=== PATIENT | male | born 1965 | race Caucasian/White ===

== ENCOUNTER → 2016-06-27 | Outpatient (CLI) | payer OTHER ==
--- NOTE | ~2016-06-27 | S ---
[facility] [place] [address] [place] [address] SURGICAL PATH RPT PROCEDURE Name: ZOYA GUTIERRES Room #: [facility].#: [id number] Admission: 06/27/16 Date of : 61 Discharge: Report #: [id number] Path Case #: [id number] PATHOLOGY REPORT COLLECTION DATE: 06/27/2016 RECEIVED DATE: 06/27/2016 SUBMITTING PHYS: Dr. Scar Craig OTHER PHYS: Dr. Judy Ibarra SPECIMEN(S) RECEIVED: A.Neck * * * * * * * * * * * * FINAL DIAGNOSIS: Thyroid, left thyroid nodule, needle core biopsy: - FOLLICULAR LESION WITH PREDOMINANTLY MICROFOLLICLES (RARE MACROFOLLICLES) WELL HURTHLE CELLS AND RARE PSEUDOINCLUSIONS. (PLEASE SEE COMMENT) COMMENT: Examination shows a lesion of mixed cellularity with approximately 10% macrofollicles, predominantly microfollicles, foci of Hurthle cell metaplasia as well as others with pseudoinclusions. A definite capsule or fibrosis is not identified. The differential diagnosis includes a mixed macro-microfollicular adenoma, Hurthle cell adenoma, as well as a partially sampled neoplasm suggest follicular variant of papillary carcinoma. The nature of the specimen precludes evaluation for follicular carcinoma. The concurrent cytology ([id number]) showed a follicular lesion of undetermined significance. Please see separate report for details. Co-review: Dr. Arnoldo Arias. Please note sample represents a minute portion of a large lesion and may not be healthcare representative. Correlate clinically and follow up as indicated. (IUV:csd; d/t: 06/28/2016) PATHOLOGIST: Xochilt Deluna M.D. REPORT ELECTRONICALLY SIGNED BY: Xochilt Deluna M.D. DATE/TIME: 06/28/2016 16:47 * * * * * * * * * * * * GROSS PATHOLOGY: Received in formalin labeled "Zoya Gutierres" and additionally labeled "neck, thyroid nodule left" on the requisition are 2 distinct needle cores of mcdaniel soft tissue measuring 0.6 and 1.5 cm in length, which are submitted entirely in cassette A1. [address] [place] [address] SURGICAL PATH RPT PROCEDURE Name: ZOYA GUTIERRES Room #: [facility].#: [id number] Admission: 06/27/16 Date of : 61 Discharge: Report #: [id number] Path Case #: [id number] (TTL; 06/27/2016) CLINICAL HISTORY: Thyroid nodule, left INITIAL CPT CODE(S): A; 97765 Professional services performed by [facility] at [facility] [address] [place] [address] Technical services performed by [facility] at [address] [place] [address], [place] [address]. [facility] [address] [address] PHONE: [phone] DIRECTOR: Blake W. Hernando, M.D. * * * END OF REPORT * * *
--- NOTE | ~2016-06-27 | CNG ---
[facility] [place] [address] CYTO-NONGYN REPORT PROCEDURE Name: ZOYA MOYA Room #: [facility].#: [id number] Admission: 06/27/16 Date of : 61 Discharge: Report #: [id number] Path Case #: [id number] CYTOPATHOLOGY REPORT COLLECTION DATE: 06/27/2016 RECEIVED DATE: 06/27/2016 SUBMITTING PHYS: Dr. Scar Craig OTHER PHYS: Dr. Judy Ibarra CLINICAL HISTORY: Thyroid nodule See also [id number] SPECIMEN(S) RECEIVED: A.Fine needle aspiration, thyroid nodule left * * * * * * * * * * * * FINAL DIAGNOSIS: Thyroid, left thyroid nodule, fine needle aspiration: BETHESDA CATEGORY III. FOLLICULAR LESION OF UNDETERMINED SIGNIFICANCE. SPECIMEN CONSISTS OF ABUNDANT FOLLICULAR CELLS WITH SCANT COLLOID. THE DIFFERENTIAL DIAGNOSIS INCLUDES CELLULAR ADENOMATOID NODULE AND FOLLICULAR NEOPLASM. COMMENT: Examination shows sparsely cellular aspirate smears with scattered macro- and microfollicles. There is watery colloid along with several foci of dense colloid. Papillary groups, nuclear grooves, or nuclear membrane irregularities as well as pseudoinclusions are not identified. The concurrent biopsy [id number] showed a markedly cellular tightly packed mixed macro-microfollicular lesion along with Hurthle cells and a few pseudoinclusions (see separate report). This may be due to sampling bias. Please note sample represents a minute portion of a larger lesion and may not be customer service representative. Correlate clinically and follow up as indicated. Co-review: Dr. Arnoldo Arias. (IUV:csd; d/t: 06/28/2016) PATHOLOGIST: Xochilt Deluna M.D. REPORT ELECTRONICALLY SIGNED BY: Xochilt Deluna M.D. DATE/TIME: 06/28/2016 16:09 * * * * * * * * * * * * GROSS PATHOLOGY: A. Fine needle aspiration, thyroid nodule left: The specimen is labeled "Bhavik Zoya C" and consists of 3 fixed slides, 3 air dried slides, and 20 mL of red material in cytolyt from the needle rinse is [facility] [address] [place] [address] CYTO-NONGYN REPORT PROCEDURE Name: ZOYA MOYA Room #: [facility].#: [id number] Admission: 06/27/16 Date of : 61 Discharge: Report #: [id number] Path Case #: [id number] also submitted and one ThinPrep slide and cell block were prepared from this material. RNA Retain vial received. ([facility] 06.27.2016) ROVING MARKER(S): NICOLE Sandy(ASCP) INITIAL CPT CODE(S): A; 38635, 46448 Professional services performed by [facility] at [facility] [address] [facility] , [place] [address] Technical services performed by [facility] at [address] [place] [address]., [address], [place] [address]. [facility] [address] [place], [place] [address], [address] [place] [address] PHONE: [phone] DIRECTOR: Blake Villagomez M.D. * * * END OF REPORT * * *
== END ==
LOC: EDBD → ULTRA 07:22
DX: E04.1 Nontoxic single thyroid nodule (principal)

== ENCOUNTER 2016-07-18 05:32 | Day surgery (SDC) | payer OTHER ==
[~2016-07-18] VITALS: Ht 182.9 cm; Wt 119.0 kg
[2016-07-18] VITALS (7 sets, daily range): BP systolic 134–185; BP diastolic 76–95
--- NOTE | ~2016-07-18 | O ---
[facility] [place] [address] OPERATIVE REPORT Name: ZOYA MOYA Room #: 150-5 [facility]#: [id number] Admission: 07/18/16 Attend Phys: Scar Craig MD Discharge: Date of : 61 Report #: [id number] THIS REPORT FOR: //name// CC: Scar Ibarra MD DATE OF SERVICE: 07/18/2016 SURGEON: Scar Craig MD. PREOPERATIVE DIAGNOSES: 1. A 3.8 cm follicular mass, thyroid. 2. Multinodular goiter POSTOPERATIVE DIAGNOSES: 1. A 3.8 cm follicular mass, thyroid. 2. Multinodular goiter OPERATION PERFORMED: 1. Total thyroidectomy. 2. Nerve integrity monitoring x 2 hours. INDICATIONS: The patient is a 50-year-old gentleman presenting with a large mass in his left lobe of thyroid measuring 3.8 cm. Fine needle aspiration was consistent with a cellular follicular lesion. Recommendations were made for definitive biopsy. The patient has background of a multinodular gland and we discussed total thyroidectomy for treatment. The patient is biochemically euthyroid. DESCRIPTION OF PROCEDURE: The patient was brought to the operating room and placed supine on the operating table. After adequate general anesthesia was achieved via endotracheal intubation with a Xomed nerve integrity monitoring endotracheal tube, the neck was extended. Planned incision was marked out in a relaxed skin tension line and injected with 1% Xylocaine with 1:100,000 epinephrine. The patient was then prepped and draped in a sterile fashion. As a separate part of the procedure, the electrodes from the endotracheal tube were connected to the nerve monitor. Ground electrodes were placed in the soft tissue overlying the sternum and contralateral shoulder. Electrode resistance and impedance was measured and found to be acceptable. Threshold and stimulus intensity parameters were set and the patient was monitored for the entirety of the case for approximately 2 hours in order to locate and protect the recurrent laryngeal nerve. The patient was prepped and draped. [address] [address] OPERATIVE REPORT Name: ZOYA MOYA Room #: 150-5 [facility].#: [id number] Admission: 07/18/16 Attend Phys: Scar Craig MD Discharge: Date of : 61 Report #: [id number] The procedure began with an incision through skin and subcutaneous tissue and platysma. Subplatysmal flaps were elevated superiorly and inferiorly. Dissection was made down to the strap muscles. These were divided vertically in the midline and retracted laterally. Procedure began on the patient's left side, the side of the large tumor. The thyroid gland was dissected superiorly. The vessels were identified, clamped between Ligaclips and divided. Middle thyroid vein was taken down between Ligaclips and divided and the inferior vessels were sequentially identified, clamped between Ligaclips and divided. Isthmus was dissected off the trachea and taken down with harmonic forceps. The tumor was then rolled up on to the trachea. Dissection in the tracheoesophageal groove revealed the recurrent nerve. This was tracked superiorly to the cricothyroid joint confirmed with probe stimuli. Keeping this in direct vision, Guillory's ligament was taken down sharply. The superior parathyroid was attached to the gland. This was dissected on its blood supply and preserved. The inferior parathyroid was running with the inferior thyroid artery also identified and preserved. 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 Final diagnosis was deferred to permanent section. While awaiting, the right lobe was then dissected. Again beginning superiorly, the superior vessels were sequentially identified, clamped between Ligaclips and divided. Middle thyroid vein was taken down between Ligaclips. The inferior vessels were sequentially identified, clamped between Ligaclips and divided. Dissection was made in the tracheoesophageal groove again finding the nerve and tracking it superiorly to the cricothyroid joint. Again, on this side, the superior parathyroid was attached to the capsule, dissected free and its blood supply preserved. The inferior parathyroid as well was running with the inferior thyroid artery also identified and preserved. Guillory's ligament was then taken down sharply keeping the nerve in direct vision. This lobe was delivered off the field in formalin as permanent section. Hemostasis was then assured with bipolar cautery and clip ligature. The wound was then irrigated. Powdered Kendell was placed opposite each cricothyroid joint, though 10-Hebrew Bucky drain was placed through a separate stab incision, curled into the wound and connected to bulb suction. The strap muscles were closed vertically in the midline there and then, the platysmal layer closed with interrupted 3-0 Vicryl, 4-0 Vicryl deep dermal sutures were placed and a 5-0 running subcuticular Prolene on skin. The drain was sutured in place with 2-0 silk and connected to bulb suction. The wound was dressed with Mastisol and a quarter inch Steri-Strips followed by an Op-Site. The patient was then returned to anesthesia, awake without difficulty, returned to recovery in good condition. Sponge and needle counts were correct. There were no complications and the blood loss was about 30 mL. He will be watched overnight for monitoring of calcium, presuming he does well and discharged to home with plans to follow up me in 1 week for suture removal, 48 hours for drain removal if this remain. [facility] [address] [place] [address] OPERATIVE REPORT Name: GRIFFINZOYA La Room #: 150-5 [facility] M.R.#: [id number] Admission: 07/18/16 Attend Phys: Scar Craig MD Discharge: Date of : 61 Report #: [id number] Written and verbal discharge instructions and emergency precautions have been given to his . DISCHARGE MEDICATIONS: Will include Keflex 500 mg 1 b.i.d. for 10 days, Phenergan suppository 25 mg 1 per rectum q. 4-6 hours p.r.n., hydrocodone/acetaminophen 7.5/325 one to two q. 4-6 hours p.r.n., Synthroid 125 mcg q. day, Tums 500 mg 2 tablets t.i.d. He is instructed on light activity and soft diets. <ELECTRONICALLY SIGNED> By: Scar Craig MD 07/18/16 1555 [id number] 1547 Scar Craig MD /nt
--- NOTE | ~2016-07-18 | S ---
[facility] [address] [place] [address] SURGICAL PATH RPT PROCEDURE Name: ZOYA MOYA Room #: 408-[address] [facility] M.R.#: [id number] Admission: 07/18/16 Date of : 61 Discharge: Report #: [id number] Path Case #: [id number] PATHOLOGY REPORT DRAFT COLLECTION DATE: 07/18/2016 RECEIVED DATE: 07/18/2016 SPECIMEN(S) RECEIVED: A.Left thyroid lobe and isthmus B.Right thyroid lobe
[~2016-07-18 05:32] MED LIST: CETIRIZINE HCL10 MG PO; FISH OIL 1,001000 M2 PO; LIPITOR10 MG PO; LIPO-FLAVONOID1 EACH PO; MULTIVITAMINS PO; TRAMADOL 50 MG50 MG PO
[2016-07-18] MEDS ORDERED: KEFLEX500 MG PO (15:10)
[2016-07-18] MEDS ORDERED: LEVOTHYROXIN0.125 M1 PO (15:11)
[2016-07-18] MEDS ORDERED: TUMS CHEWA500 MG/11 PO (15:12)
[2016-07-18] MEDS ORDERED: HYDROCODONE-APA1 TA1 PO (15:14)
[2016-07-18 15:56] LABS: ALBUMIN 3.7 g/dL (3.4-5.0); MAGNESIUM 1.5 mg/dL (1.8-2.4)
[2016-07-19 03:37] VITALS: BP 106/39
[2016-07-19 08:39] VITALS: BP 121/66
[2016-07-19 13:19] VITALS: BP 121/66
[2016-07-19 14:26] VITALS: BP 121/66
== END 2016-07-19 14:07 | disposition home or self-care (01) ==
LOC: OR 05:32 → TBA 05:33 → OR 11:10 → 4N 16:41 → OR 07-19 14:07
PROVIDERS: Otolaryngology Plastic Surgery within the Head & Neck
DX: E04.2 Nontoxic multinodular goiter (principal); E78.00 Pure hypercholesterolemia, unspecified; G47.33 Obstructive sleep apnea (adult) (pediatric)
CPT/HCPCS: 50010; 50101; 50331; 50386; 50417; 52190; 52220; 52287; 56524; 56526; 56528; 56760; 57006; 62110; 62900; 65006; 70005